=== PATIENT | male | born 1955 | race Caucasian/White ===

== ENCOUNTER 2022-08-03 13:35 | Emergency (ER) | payer MEDICARE, OTHER, SELFPAY ==
[2022-08-03] VITALS (9 sets, daily range): BP systolic 115–173; BP diastolic 54–118; PULSE 83–90; RESP 16–34; TEMP 37.2; O2SAT 87–95
--- NOTE | ~2022-08-03 | CT_ITS ---
CT head without contrast Indication: Weakness Technique: Serial scans were obtained through the brain without the administration of contrast. Dose reduction technique was used on this scan by utilizing automated exposure control and iterative recon struction technique. The dose-length product (DLP) was 681.00 mGy-cm. Findings: There is no evidence of intracranial hemorrhage, mass lesion, or acute infarct. The ventri cles and subarachnoid spaces are unremarkable. Low attenuation regions are seen within the periventr icular white matter bilaterally, likely representing changes from chronic microvascular ischemic dise ase. There is no evidence of edema, mass effect or midline shift. The visualized paranasal sinuses and mastoid air cells are clear. Impression: No intracranial hemorrhage, mass, or acute infarct. Mild chronic microvascular ischemic changes. Reviewed, dictated and finalized at location . Impression: No intracranial hemorrhage, mass, or acute infarct. Mild chronic microvascular ischemic changes.
--- NOTE | ~2022-08-03 | XR_ITS ---
EXAMINATION: XR chest 2V DATE: 08/03/2022 15:31 INDICATION: 2 weeks of nonproductive cough TECHNIQUE: frontal and lateral views of the chest were obtained. COMPARISON: None FINDINGS: Reason increased lucency and architectural distortion most prominent in the bilateral upper lung zone s particularly on the right consistent with emphysema. Increased interstitial opacities with bronchia l wall thickening in the bilateral posterior lower lung zones likely combination of bronchovascular c rowding related to the emphysema and superimposed bronchitis or mild pulmonary edema. No focal airspa ce consolidation. No pleural effusion or pneumothorax. Heart size is normal. Atherosclerotic coronary artery calcifications. Mild thoracic spondylosis with mild anterior wedging of a couple mid thoracic vertebral bodies. IMPRESSION: 1. Mild increased interstitial pattern with some bronchial wall thickening but without airspace conso lidation in the bilateral lower lung zones. This likely represents combination of bronchovascular crop duster wding related to upper lung predominant emphysema and superimposed either bronchitis or mild pulmonar y edema. Reviewed, dictated and finalized at location B. IMPRESSION: 1. Mild increased interstitial pattern with some bronchial wall thickening but without airspace consolidation in the bilateral lower lung zones. This likely r epresents combination of bronchovascular crowding related to upper lung predomi nant emphysema and superimposed either bronchitis or mild pulmonary edema.
--- NOTE | 2022-08-03 14:12 | ED.WEAKNESS ---
HPI - Weakness General Chief complaint: Weakness Stated complaint: urinary issues/confusion/weakness Time Seen by Provider: 08/03/22 13:43 History of Present Illness HPI Narrative: This is a 67-year-old male with past history of coronary artery disease, who presents to the emergency department complaining of general weakness and urinary incontinence for the past week. Patient states he is visiting from out of town and over the past week he has noticed urinary incontinence. He states he was previously diagnosed with an enlarged prostate but has not yet undergone further evaluation. He also notes in the past week, he has slumped over on the couch once and missed a chair once while sitting. He denies head injury, loss of consciousness, chest pain or shortness of breath. Related Data Home Medications Medication Instructions Recorded Confirmed clopidogrel 75 mg tablet (Plavix) 75 mg PO DAILY 08/03/22 08/03/22 Allergies Allergy/AdvReac Type Severity Reaction Status Date / Time No Known Allergies Allergy Verified 08/03/22 14:01 Review of Systems Review of Systems: CONSTITUTIONAL: Generalized weakness denies fever, chills, or sweats. EYES: Denies visual changes, redness, or discharge. ENT: Denies rhinorrhea, congestion, sore throat, or otalgia. CARDIOVASCULAR: Denies chest pain, palpitations, or edema. RESPIRATORY: Denies cough or dyspnea. GASTROINTESTINAL: Denies abdominal pain, nausea, vomiting, or diarrhea. GENITOURINARY: Urinary incontinence denies dysuria or hematuria. SKIN: Denies rash or itching. MUSCULOSKELETAL: Denies back pain, joint pain, or myalgia. NEUROLOGIC: Denies headache, numbness, dizziness, or weakness. PSYCHIATRIC: Denies anxiety or depression. PMFSH Past Medical History Medical History Coronary artery disease Enlarged prostate Social History Social History (Updated 08/03/22 @ 14:15 by Jose Barboza MD) Smoking status: Current every day smoker Alcohol intake: current Substance use: current Substance use type: marijuana Exam Narrative: GENERAL: Well-developed, well-nourished, and in no acute distress. HEAD: Normocephalic, atraumatic. EYES: PERRLA and EOMI. ENT: Nares clear, no rhinorrhea or epistaxis. Mucous membranes dry. Oropharynx without tonsillar hypertrophy exudate or other lesions. CHEST: Clear to auscultation. No respiratory distress. No wheezes rales or rhonchi HEART: Regular rate and rhythm. No murmur heard. Normal peripheral pulses. ABDOMEN: Soft, nontender, nondistended, normal active bowel sounds. EXTREMITIES: Normal range of motion. No edema. SKIN: Multiple seborrheic keratoses. Skin otherwise warm, dry, no rash. NEURO: No focal deficits. Alert and oriented x3. Cranial nerves II through XII intact. Strength 5/5 in all extremities. Sensation intact bilaterally. No noted ataxia PSYCH: Normal mood and affect. Course Course Emergency Course: 16:12 - Chemistries consistent with diabetes (glucose of 239). Anion gap is 6. CBC unremarkable. UA not concerning for urinary tract infection and demonstrates microscopic hematuria. Chest x-ray not concerning for pneumonia. CT head negative for acute intracranial process. During work-up, the patient noted he has had an intermittent nonproductive cough for the past 2 weeks. After discussing labs, the patient states he has a history of diabetes and stopped taking his medications several weeks ago. The patient was able to ambulate in the emergency department under his own power with use of his cane without difficulty. Will discharge with an albuterol inhaler and recommendation to follow-up with his primary care doctor. Discussed return and emergency precautions including signs/symptoms of stroke, intracranial hemorrhage and ACS. The patient voiced understanding and is comfortable with the plan. All questions answered to his satisfaction. Vital Signs Vital
[2022-08-03 14:34] LABS: Basophils Absolute Auto 0.02 K/mm3 (0.00-0.10); Basophils Percent Auto 0.3 % (0.0-1.0); Eosinophils Absolute Auto 0.01 K/mm3 (0.02-0.50); Eosinophils Percent Auto 0.2 % (1.0-6.0); Hematocrit 41.8 % (37.0-46.0); Hemoglobin 13.8 g/dL (12.4-15.3); Immature Granulocyte Absolute 0.02 K/mm3 (0.00-0.00); Immature Granulocyte Percent A 0.3 % (0.0-0.0); Lymphocytes Absolute Auto 2.24 K/mm3 (1.10-4.50); Lymphocytes Percent Auto 36.8 % (18.0-42.0); Mean Corpuscular Hemoglobin 30.2 pg (27.0-31.0); Mean Corpuscular Volume 91.5 fL (78.0-102.0); Mean Platelet Volume 10.2 fl (8.7-11.0); Monocytes Percent Auto 11.5 % (2.0-11.0); Neutrophils Absolute Auto 3.1 K/mm3 (1.7-7.2); Neutrophils Percent Auto 50.9 % (50.0-70.0); Platelet Count Result 196 K/mm3 (150-420); Red Blood Count 4.57 M/mm3 (4.70-6.10); Red Cell Distribution Width 13.8 % (11.6-14.4); White Blood Count 6.1 K/mm3 (4.8-10.8)
[2022-08-03] MEDS: LACTATED RINGERS 1,000 ML 999 ML IV CONT (14:44)
[2022-08-03 14:46] LABS: Prothrombin Time 10.9 Seconds (9.50-12.10)
[2022-08-03 14:53] LABS: Alanine Aminotransferase 23 U/L (16-63); Albumin Level 3.1 g/dL (3.4-5.0); Alkaline Phosphatase 98 U/L (46-116); Anion Gap 6 mmol/L (8-16); Aspartate Amino Transferase 36 U/L (15-37); Bilirubin,Total 0.4 mg/dL (0.00-1.00); Blood Urea Nitrogen 25 mg/dL (7-18); Calcium 8.6 mg/dL (8.5-10.1); Carbon Dioxide 28 mmol/L (21-32); Chloride 99 mmol/L (98-108); Estimated CRCL calculation 54 ml/min; Estimated Glomerular Filt Rate 55; Glucose 239 mg/dL (70-99); Osmolality Calculated 288 mOsm/kg (285-295); Potassium 3.7 mmol/L (3.5-5.1); Sodium 133 mmol/L (136-145); Total Protein 6.8 g/dL (6.4-8.2)
[2022-08-03 15:20] LABS: Appearance Urine Clear (Clear); Bilirubin Urine Negative (Negative); Blood Urine 1+ (Negative); Color Urine Light Yellow (Yellow); Glucose Urine UA Trace (Negative); Ketones Urine Negative (Negative); Leukocyte Esterase Ur Negative LEU/UL (Negative); Nitrate Urine Negative (Negative); Protein Urine Trace (Negative); Specific Grav Ur 1.025 (1.010-1.020); Urobilinogen Urine 0.2 mg/dL (0.2-1.0); pH Urine 5.5 (5.0-8.0)
[2022-08-03 15:25] LABS: Add Urine Microscopic? YES; Squamous Epithelial Cell Urine Rare /hpf (Few); WBC Urine None seen /hpf (0-3)
[2022-08-03 15:26] LABS: Bacteria Urine Trace /hpf
--- NOTE | 2022-08-03 16:00 | PC.NURSE ---
Pt walking with his cane and standby assist to restroom and back. O2 sats remained 91-92%
--- NOTE | 2022-08-03 16:09 | PC.NURSE ---
Pt ambulatory with cane to restroom and back. Pt reports unable to recall what he took for diabetes prior to stopping his medication 3-4 months ago. PT states to be honest, I don't really have a doctor so I'm not sure what I was on. Pt unsure of his primary pharmacy in [place] for med rec.
== END 2022-08-03 16:35 | disposition home or self-care (01) ==
PROVIDERS: Emergency Provider Preventive Medicine Aerospace Medicine
DX: E11.9 Type 2 diabetes mellitus without complications (principal); R35.0 Frequency of micturition; R05.9 Cough, unspecified; I25.10 Atherosclerotic heart disease of native coronary artery without angina pectoris; N40.0 Benign prostatic hyperplasia without lower urinary tract symptoms; F17.200 Nicotine dependence, unspecified, uncomplicated; F12.90 Cannabis use, unspecified, uncomplicated; Z79.02 Long term (current) use of antithrombotics/antiplatelets
CPT/HCPCS: 70450; 71046; 80053; 81001; 85025; 85610; 96360; 99284; J7120